=== PATIENT | male | born 1940 | race Caucasian/White ===

== ENCOUNTER 2022-09-21 11:09 | Outpatient (CLI) | payer OTHER | END 2022-09-21 11:10 | disposition home or self-care (01) | LOC: CSHULT 11:09 | PROVIDERS: ATTEND Internal Medicine Nephrology | DX: I13.10 Hypertensive heart and chronic kidney disease without heart failure, with stage 1 through stage 4 chronic kidney disease, or unspecified chronic kidney disease (principal); N18.9 Chronic kidney disease, unspecified; I70.90 Unspecified atherosclerosis; M19.90 Unspecified osteoarthritis, unspecified site; N20.0 Calculus of kidney; E03.9 Hypothyroidism, unspecified; M10.9 Gout, unspecified | CPT/HCPCS: 76770 ==